=== PATIENT | male | born 1955 | race Caucasian/White ===

== ENCOUNTER 2019-03-06 21:15 | Observation (INO) ==
--- OUTSIDE RECORDS SUMMARY | 2019-03-06 21:17 | External Medical Summary | Continuity of Care Document ---
:1955 Author Name Vidhya Pizarro Address Unavailable Unavailable , Care Team Providers Name Role Phone Onel Robbins M.D. Unavailable [email or web address] [email or web address], UNKNOWN Unavailable Unavailable Problems Active medical history not documented Allergies and Adverse Reactions Allergy history not documented Medications Medications not documented Procedures Procedures not documented Immunizations Immunizations not documented Plan of Treatment Planned Observations Planned Goals not documented Results No Known Results Results not documented
[2019-03-06 21:25] LABS: Basophils # (auto) 0.03 K/uL (0-0.2); Basophils % (auto) 0.5 %; Eosinophils # (auto) 0.25 K/uL (0-0.5); Eosinophils % (auto) 3.9 %; Hematocrit (blood only) 41.7 % (42-52); Hemoglobin 15.1 g/dL (14.0-18.0); Immature Granulocytes # (auto) 0.02 K/uL (0.00-0.02); Immature Granulocytes % (auto) 0.3 %; Lymphocytes # (auto) 2.08 K/uL (1.2-3.4); Lymphocytes % (auto) 32.7 %; Mean Corpuscular Hgb Conc 36.2 g/dL (32-36); Mean Corpuscular Volume 87.6 fL (80-100); Mean Platelet Volume 8.9 fL (7.4-10.4); Monocytes # (auto) 0.65 K/uL (0.11-0.59); Monocytes % (auto) 10.2 %; Neutrophils # (auto) 3.33 K/uL (1.4-6.5); Neutrophils % (auto) 52.4 %; Platelet Count 232 K/uL (130-400); RDW Coefficient of Variation 12.7 % (11.5-14.5); Red Blood Count 4.76 M/uL (4.7-6.1); White Blood Count 6.36 K/uL (4.8-10.8)
--- NOTE | 2019-03-06 21:29 | CT Scan Report ---
CT head/brain wo con CLINICAL HISTORY: 64 years-old Male with Stroke evaluation . Acute strokelike symptoms TECHNIQUE: Multiple axial CT images of the head were obtained without contrast. A dose lowering tech nique was utilized adhering to the principles of ALARA. CT DOSE: 614.27 mGy.cm COMPARISON: Head CT 01/03/2013. FINDINGS: No acute intracranial hemorrhage, midline shift, intracranial mass, hydrocephalus, territorial ischem ia or abnormal extra-axial collection. Cerebral vascular calcifications are noted. Mild bifrontal cer ebral atrophy. The calvarium is intact. Mild mucosal thickening of the ethmoid air cells. Soft tissues and orbits a re unremarkable. IMPRESSION: No acute intracranial abnormality. The above report was generated using voice recognition software. It may contain grammatical, syntax o r spelling errors. Electronically signed by: Dieter Guerrero M.D. 03/06/2019 9:28 PM
[2019-03-06 21:42] LABS: Alanine Aminotransferase 50 U/L (12-78); Albumin Level 4.1 gm/dl (3.4-5.0); Aspartate Aminotransferase 25 U/L (15-37); BUN Creatinine Ratio 13.9 (10-20); Blood Urea Nitrogen 13 mg/dl (7-18); Calcium 8.8 mg/dl (8.5-10.1); Carbon Dioxide 26 mmol/L (21-32); Chloride 106 mmol/L (98-107); Creatinine Clr Calc Pharmacy 75.6 ml/min; Est GFR (African American) 98.8; Est GFR (Non-African American) 85.2; Glucose 122 mg/dl (70-99); Magnesium 1.9 mg/dl (1.8-2.4); Potassium 3.4 mmol/L (3.5-5.1); Sodium 140 mmol/L (136-145)
[2019-03-06 21:46] LABS: Albumin Globulin Ratio 1.3 (0.9-2); Alkaline Phosphatase 91 U/L (45-117); Bilirubin,Total 0.7 mg/dl (0.2-1); Globulin 3.2 gm/dl (2.5-4.0); Total Protein 7.3 gm/dl (6.4-8.2); Troponin I < 0.015 ng/ml (0-0.045)
[2019-03-06 21:53] LABS: Partial Thromboplastin Time 26.8 Seconds (21.0-31.0); Prothrombin Time 10.3 Seconds (9.0-12.0)
[2019-03-06] MEDS ORDERED: ASPIRIN CHEW 324 MG PO STA (22:04)
[2019-03-06] MEDS ORDERED: CLOPIDOGREL BISULFATE 300 MG TAB PO STA (22:04)
--- NOTE | 2019-03-06 23:56 | History & Physical Report ---
Date of Service March 06, 2019 Assessment & Plan (1) Stroke: Patient was seen as a stroke alert and evaluated by tele-stroke. 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 Patient's primary symptoms at the time of my evaluation were inability to close left eye lids, left facial droop, and primary dysfunctionality of left cranial nerve VII. Patient had full range of motion when tracking objects, complained of no diplopia. Recommendation was made for aspirin and Plavix. I have ordered an MRI of brain with and without contrast, MRA of head without contrast, and MRA of neck with and without contrast. Ischemic stroke without TPA protocol ordered. Consults for PT/OT/speech therapy and neurology Present on Admission?: Yes (2) Cranial nerve III palsy: See above Present on Admission?: Yes (3) Cranial nerve VII palsy: See above Present on Admission?: Yes (4) Hypertension: Permissive hypertension. Adjust amlodipine 10 mg p.o. daily in the a.m. as needed. Note for the record the patient had allergic reaction to lisinopril, when he took it for the first time, 2 days before the neuro symptoms developed, that consisted of blistering of his lip and swelling of the left side of the tongue and his hard palate. Present on Admission?: Yes (5) GERD (gastroesophageal reflux disease): Hold omeprazole 20 mg p.o. daily Present on Admission?: Yes (6) Allergic rhinitis: Hold loratadine Present on Admission?: Yes History of Present Illness Chief Complaint: The patient presented to the emergency department as a stroke alert, due to symptoms of slurred speech and facial droop that began around 7:30 PM prior to arrival. Primary Care Provider: Bob Christie The patient is a 64-year-old male brought to the emergency department by EMS, with complaint of slurred speech and facial droop that began at 7:30 PM. The patient reported to me that upon awakening this morning, his right eye had a foreign body sensation with it. He went to work, and when at work later on in the day noticed that when he was eating, the food was dripping out of the left corner of his mouth. Later on when he was at home, and was brushing his teeth, he noted a similar problem with toothpaste, and also noted at that time he was unable to close his left eye and the left side of his face was drooping. He then called his friend, who then called EMS, and the patient was assessed and brought in to the ED. Allergies Allergy/AdvReac Type Severity Reaction Status Date / Time lisinopril Allergy Intermediate Mouth Verified 03/06/19 22:44 blistering Home Medications Home Medications Medication Instructions Recorded Confirmed Type amlodipine 10 mg PO DAILY 03/06/19 03/06/19 History loratadine 10 mg PO DAILY 03/06/19 03/06/19 History multivitamin with minerals [Men's 1 tab PO DAILY 03/06/19 03/06/19 History One Daily] omeprazole 20 mg PO DAILY 03/06/19 03/06/19 History Past Med/Surg History Medical History No significant past medical history Social History Preferred Language: Albanian Communication Ability: Effective 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 Beliefs That Will Affect Care: None Current Living Situation: Spouse Other Information That Helps Us Care for You: No Feels Safe at Home: Yes Safety Concerns: Feels Safe At This Time Smoking Status: Never smoker Hx Alcohol Use: No Hx Substance Use: No Review of Systems Review of Systems: The patient denies chest pain, palpitations, shortness of breath, dyspnea on exertion, cough, lower extremity swelling, sore throat, fevers, chills, sweats, weight change, fatigue, nausea, vomiting, diarrhea , constipation, abdominal pain, pelvic pain, blood in urine or stool, dysuria, urinary frequency or urgency, lightheadedness, dizziness, headache, memory loss, loss of consciousness, rash, abnormal bruising or bleeding, imbalance, focal or generalized weakness, numbness or tingling in arms or legs, generalized arthralgias or myalgias, back or neck pain, or night sweats. The review of systems is otherwise negative other than for that already noted above, and at least 10 systems have been reviewed. Physical Exam Physical Exam: The patient is awake, alert and oriented 3, well developed and well nourished, has a left facial droop, is sitting upright in bed, and in no acute distress. HEENT--PERRL, EOMI, mucous membranes and oropharynx dry. Neck--supple. No JVD. No bruits. Thyroid normal, trachea midline, no adenopathy. Heart--normal S1 and S2. No murmurs, rubs or gallops. Lungs--clear bilaterally, no respiratory distress, no accessory muscle use. Abdomen--normal bowel sounds and soft. Nontender. Nondistended. Extremities--no cyanosis or clubbing. No edema. There are good distal pulses b/l. Dermatologic--normal skin turgor, normal color, no abnormal lymph nodes, no rash. Neurologic--left facial droop. Unable to blink left eye. Normal tracking and full range of motion noted. Rheumatologic--normal range of motion. Psychiatric--normal affect. Results & Data Vital Signs (Past 12 Hours) Vital Signs Temp Pulse Pulse Resp BP BP Pulse Ox 03/06/19 23:10 83 20 133/77 96 03/06/19 22:30 103 H 22 162/90 H 97 03/06/19 22:00 95 H 28 H 141/89 H 95 03/06/19 21:32 99 H 31 H 149/88 H 94 03/06/19 21:29 98.8 F 103 H 14 149/88 H 96 03/06/19 21:24 100 H 23 153/90 H Laboratory Results Laboratory Results WBC 6.36 K/uL (4.8-10.8) 03/06/19 21:16 RBC 4.76 M/uL (4.7-6.1) 03/06/19 21:16 Hgb 15.1 g/dL (14.0-18.0) 03/06/19 21:16 Hct 41.7 % (42-52) L 03/06/19 21:16 MCV 87.6 fL (80-100) 03/06/19 21:16 MCH 31.7 pg (25-34) 03/06/19 21:16 MCHC 36.2 g/dL (32-36) H 03/06/19 21:16 RDW Std Deviation 41.0 fL (36.4-46.3) 03/06/19 21:16 RDW Coeff of Cony 12.7 % (11.5-14.5) 03/06/19 21:16 Plt Count 232 K/uL (130-400) 03/06/19 21:16 MPV 8.9 fL (7.4-10.4) 03/06/19 21:16 Immature Gran % (Auto) 0.3 % 03/06/19 21:16 Neut % (Auto) 52.4 % 03/06/19 21:16 Lymph % (Auto) 32.7 % 03/06/19 21:16 [place] % (Auto) 10.2 % 03/06/19 21:16 Eos % (Auto) 3.9 % 03/06/19 21:16 Baso % (Auto) 0.5 % 03/06/19 21:16 Immature Gran # (Auto) 0.02 K/uL (0.00-0.02) 03/06/19 21:16 Neut # (Auto) 3.33 K/uL (1.4-6.5) 03/06/19 21:16 Lymph # (Auto) 2.08 K/uL (1.2-3.4) 03/06/19 21:16 [place] # (Auto) 0.65 K/uL (0.11-0.59) H 03/06/19 21:16 Eos # (Auto) 0.25 K/uL (0-0.5) 03/06/19 21:16 Baso # (Auto) 0.03 K/uL (0-0.2) 03/06/19 21:16 PT 10.3 Seconds (9.0-12.0) 03/06/19 21:30 INR 1.0 (0.9-1.1) 03/06/19 21:30 APTT 26.8 Seconds (21.0-31.0) 03/06/19 21:30 PTT Ratio 1.0 03/06/19 21:30 Sodium 140 mmol/L (136-145) 03/06/19 21:16 Potassium 3.4 mmol/L (3.5-5.1) L 03/06/19 21:16 Chloride 106 mmol/L (98-107) 03/06/19 21:16 Carbon Dioxide 26 mmol/L (21-32) 03/06/19 21:16 Anion Gap 8.0 (3-11) 03/06/19 21:16 BUN 13 mg/dl (7-18) 03/06/19 21:16 Creatinine 0.93 mg/dl (0.6-1.4) 03/06/19 21:16 Est Cr Clr Drug Dosing 75.6 ml/min 03/06/19 21:16 Est GFR ( Amer) 98.8 03/06/19 21:16 Est GFR (Non-Af Amer) 85.2 03/06/19 21:16 BUN/Creatinine Ratio 13.9 (10-20) 03/06/19 21:16 Glucose 122 mg/dl (70-99) H 03/06/19 21:16 POC Glucose 111 (70-99) H 03/06/19 21:25 Calcium 8.8 mg/dl (8.5-10.1) 03/06/19 21:16 Magnesium 1.9 mg/dl (1.8-2.4) 03/06/19 21:16 Total Bilirubin 0.7 mg/dl (0.2-1) 03/06/19 21:16 AST 25 U/L (15-37) 03/06/19 21:16 ALT 50 U/L (12-78) 03/06/19 21:16 Alkaline Phosphatase 91 U/L (45-117) 03/06/19 21:16 Troponin I < 0.015 ng/ml (0-0.045) 03/06/19 21:16 Total Protein 7.3 gm/dl (6.4-8.2) 03/06/19 21:16 Albumin 4.1 gm/dl (3.4-5.0) 03/06/19 21:16 Globulin 3.2 gm/dl (2.5-4.0) 03/06/19 21:16 Albumin/Globulin Ratio 1.3 (0.9-2) 03/06/19 21:16 Blood Type O Positive 03/06/19 21:30 Antibody Screen NEGATIVE 03/06/19 21:30 Diagnostic Findings [facility], [place] [phone] CT Scan Report Patient: TAMMI CELESTINAdmit Date: 03/06/19 MR#: [id number]: [address] [place] [address] Acct ID:[id number]: Date: 1955[facility] Zip: [place] [address] Age: 64Location: ED Sex: M Room/Bed: Att Phy: Diagnosis: STROKE SX Tamie Phy: PCP,NO Service Date: 03/06/19 [facility] Phy: Interpreting Phy: Everardo Guerrero Admit Phy: Ordering Phy: Anuj Malcolm M.D. cc: ~ CT head/brain wo con CLINICAL HISTORY: 64 years-old Male with Stroke evaluation . Acute strokelike symptoms TECHNIQUE: Multiple axial CT images of the head were obtained without contrast. A dose lowering technique was utilized adhering to the principles of ALARA. CT DOSE: 614.27 mGy.cm COMPARISON: Head CT 01/03/2013. FINDINGS: No acute intracranial hemorrhage, midline shift, intracranial mass, hydrocephalus, territorial ischemia or abnormal extra-axial collection. Cerebral vascular calcifications are noted. Mild bifrontal cerebral atrophy. The calvarium is intact. Mild mucosal thickening of the ethmoid air cells. Soft tissues and orbits are unremarkable. IMPRESSION: No acute intracranial abnormality. The above report was generated using voice recognition software. It may contain grammatical, syntax or spelling errors. Electronically signed by: Dieter Guerrero M.D. 03/06/2019 9:28 PM Dictated: 03/06/192125 Transcribed: 03/06/192125 Code Status & VTE Plan Code Status Full code VTE Prophylaxis Plan VTE Prophylaxis will be ordered: Yes PG Care Time/CCT Total # of Minutes Spent Total Time Spent with Patient: Total time spent is greater than 50% in coordination of care (as documented) at patient's floor/unit and/or counseling patient: (1) Stroke CVA mechanism: unspecified Qualified Code(s): I63.9 - Cerebral infarction, unspecified (2) Cranial nerve III palsy Laterality: right Qualified Code(s): H49.01 - Third [oculomotor] nerve palsy, right eye
[2019-03-07] MEDS ORDERED: ONDANSETRON INJ 2 MG/ML 2 ML VIAL IV PRN (01:21)
[2019-03-07] MEDS ORDERED: PHARMACIST DISCHARGE MED REC CONSULT PRN (01:21)
[2019-03-07] MEDS ORDERED: ENOXAPARIN INJ 40 MG/0.4 ML SYR SQ SCH ×2 (01:45→22:00)
--- NOTE | 2019-03-07 01:46 | Emergency Department Note ---
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 Per EMS, the patient had a headache which has since resolved. They note that when they arrived the patient's speech was slurred. Patient reports mild headache. Patient is not on any blood thinners. Home Medications Home Medications Medication Instructions Recorded Confirmed Type amlodipine 10 mg PO DAILY 03/06/19 03/06/19 History loratadine 10 mg PO DAILY 03/06/19 03/06/19 History multivitamin with minerals [Men's 1 tab PO DAILY 03/06/19 03/06/19 History One Daily] omeprazole 20 mg PO DAILY 03/06/19 03/06/19 History Allergies Allergy/AdvReac Type Severity Reaction Status Date / Time lisinopril Allergy Intermediate Mouth Verified 03/06/19 22:44 blistering Past Med/Surg History Medical History No significant past medical history Social History Preferred Language: Slovenian Smoking Status: Former smoker Review of Systems See HPI for pertinent positives & negatives. and A total of 10 systems reviewed and were otherwise negative Physical Exam Vital Signs Vital Signs - 24 hr 03/06/19 21:24 03/06/19 21:29 03/06/19 21:32 Temperature 37.1 C Temperature Source Oral Sepsis Recent Fever Within 48 Hours No Sepsis Action Taken by Nursing No Action Required Pulse Rate 100 H 103 H 99 H Pulse Rate [Finger] Pulse Rate from SpO2 Sensor 98 H Respiratory Rate 23 14 31 H Respiratory Effort / Characteristics Non-Labored Respiratory Depth Normal Blood Pressure 153/90 H 149/88 H 149/88 H Blood Pressure [Right Arm] Blood Pressure Mean 111 108 108 Blood Pressure Mean [Right Arm] Blood Pressure Position Sitting Pulse Oximetry 96 94 Oxygen Delivery Method Room Air 03/06/19 22:00 03/06/19 22:30 03/06/19 23:10 Temperature Temperature Source Sepsis Recent Fever Within 48 Hours Sepsis Action Taken by Nursing Pulse Rate 95 H 103 H Pulse Rate [Finger] 83 Pulse Rate from SpO2 Sensor 95 H 102 H Respiratory Rate 28 H 22 20 Respiratory Effort / Characteristics Non-Labored Spontaneous Respiratory Depth Normal Blood Pressure 141/89 H 162/90 H Blood Pressure [Right Arm] 133/77 Blood Pressure Mean 106 114 Blood Pressure Mean [Right Arm] 95 Blood Pressure Position Pulse Oximetry 95 97 96 Oxygen Delivery Method Room Air Physical Exam GENERAL: He is oriented to person, place, and time. He appears well-developed and well-nourished. He does not appear distressed. ____ HENT: Exam performed. - Head: Normocephalic and atraumatic. - Right Ear: External ear normal. No mastoid tenderness. - Left Ear: External ear normal. No mastoid tenderness. - Mouth/Throat: The oropharynx is clear and moist. No trismus in the jaw. No dental abscesses or uvula swelling. No oropharyngeal exudate or tonsillar abscesses. ____ EYES: Conjunctivae and EOM are normal. Pupils are equal, round, and reactive to light. Right eye exhibits no discharge. Left eye exhibits no discharge. No scleral icterus. ____ NECK: Normal range of motion. Neck supple. No JVD present. No spinous process tenderness present. No carotid bruit present. No rigidity. No tracheal deviation and normal range of motion present. No Brudzinski's sign and no Kernig's sign noted. ____ CV: Normal rate, regular rhythm, normal heart sounds and intact distal pulses. There is no peripheral edema. Palpable radial pulses bue. ____ PULM/CHEST: Effort normal and breath sounds normal. No respiratory distress. No stridor. He has no wheezes. He has no rales. - Chest Wall: He exhibits no tenderness. ____ ABD: The abdomen is soft. Bowel sounds are normal. He has no distension. No mass is present. There is no tenderness. There is no rebound, no guarding, no Velazquez's sign and no tenderness at McBurney's point. Rovsig negative MUSC/SKEL: Normal range of motion. There is no peripheral edema, tenderness or deformity. LYMPH: No cervical adenopathy. ____ NEURO: NIHSS of 3. Dysarthria; 1. Facial paralysis; 2. SKIN: Skin is warm and dry. He is not diaphoretic. ____ PSYCH: He has a normal mood and affect. His behavior is normal. Judgment and thought content normal. ____ Course 2116: The patient was evaluated in room B1, and a complete history and physical examination were performed.I called code stroke. 2124: I viewed the CT scan and did not see any intracranial hemorrhage. I will be contacting [facility] tele-stoke. 2128: I discussed the patient's case with Dr. Boucher- [facility]roke, she will be evaluating the patient. [facility] does not recommend a TPA at this time. She recommends Aspirin 324 and Plavix 100, and a MRA and an MRI in the morning. 2208: I discussed the patient's case with Dr. Robbins- [facility] Hospitalist, he will accept the patient for further evaluation. Administered Medications Discontinued Medications Aspirin (Aspirin) 324 mg PO NOW STA Stop: 03/06/19 22:05 Last Admin: 03/06/19 22:43 Dose: 324 mg Documented by: [id number] Clopidogrel Bisulfate (Plavix) 300 mg PO NOW STA Stop: 03/06/19 22:05 Last Admin: 03/06/19 22:43 Dose: 300 mg Documented by: [id number] Medical Decision Making Medical Records Attestation: I reviewed the patient's medical records. Home Medications Current Medication List: was personally reviewed by me Laboratory Data Attestation: I reviewed the patient's lab results. Result diagrams: 03/06/19 21:16 03/06/19 21:16 Lab Results 03/06/19 03/06/19 03/06/19 Range/Units 21:16 21:16 21:25 WBC 6.36 (4.8-10.8) K/uL RBC 4.76 (4.7-6.1) M/uL Hgb 15.1 (14.0-18.0) g/dL Hct 41.7 L (42-52) % MCV 87.6 (80-100) fL MCH 31.7 (25-34) pg MCHC 36.2 H (32-36) g/dL RDW Std Deviation 41.0 (36.4-46.3) fL RDW Coeff of Cony 12.7 (11.5-14.5) % Plt Count 232 (130-400) K/uL MPV 8.9 (7.4-10.4) fL Immature Gran % (Auto) 0.3 % Neut % (Auto) 52.4 % Lymph % (Auto) 32.7 % [place] % (Auto) 10.2 % Eos % (Auto) 3.9 % Baso % (Auto) 0.5 % Immature Gran # (Auto) 0.02 (0.00-0.02) K/uL Neut # (Auto) 3.33 (1.4-6.5) K/uL Lymph # (Auto) 2.08 (1.2-3.4) K/uL [place] # (Auto) 0.65 H (0.11-0.59) K/uL Eos # (Auto) 0.25 (0-0.5) K/uL Baso # (Auto) 0.03 (0-0.2) K/uL PT (9.0-12.0) Seconds INR (0.9-1.1) APTT (21.0-31.0) Seconds PTT Ratio Sodium 140 (136-145) mmol/L Potassium 3.4 L (3.5-5.1) mmol/L Chloride 106 (98-107) mmol/L Carbon Dioxide 26 (21-32) mmol/L Anion Gap 8.0 (3-11) BUN 13 (7-18) mg/dl Creatinine 0.93 (0.6-1.4) mg/dl Est Cr Clr Drug Dosing 75.6 ml/min Est GFR ( Amer) 98.8 Est GFR (Non-Af Amer) 85.2 BUN/Creatinine Ratio 13.9 (10-20) Glucose 122 H (70-99) mg/dl POC Glucose 111 H (70-99) Calcium 8.8 (8.5-10.1) mg/dl Magnesium 1.9 (1.8-2.4) mg/dl Total Bilirubin 0.7 (0.2-1) mg/dl AST 25 (15-37) U/L ALT 50 (12-78) U/L Alkaline Phosphatase 91 (45-117) U/L Troponin I < 0.015 (0-0.045) ng/ml Total Protein 7.3 (6.4-8.2) gm/dl Albumin 4.1 (3.4-5.0) gm/dl Globulin 3.2 (2.5-4.0) gm/dl Albumin/Globulin Ratio 1.3 (0.9-2) Blood Type Antibody Screen 03/06/19 03/06/19 Range/Units 21:30 21:30 WBC (4.8-10.8) K/uL RBC (4.7-6.1) M/uL Hgb (14.0-18.0) g/dL Hct (42-52) % MCV (80-100) fL MCH (25-34) pg MCHC (32-36) g/dL RDW Std Deviation (36.4-46.3) fL RDW Coeff of Cony (11.5-14.5) % Plt Count (130-400) K/uL MPV (7.4-10.4) fL Immature Gran % (Auto) % Neut % (Auto) % Lymph % (Auto) % [place] % (Auto) % Eos % (Auto) % Baso % (Auto) % Immature Gran # (Auto) (0.00-0.02) K/uL Neut # (Auto) (1.4-6.5) K/uL Lymph # (Auto) (1.2-3.4) K/uL [place] # (Auto) (0.11-0.59) K/uL Eos # (Auto) (0-0.5) K/uL Baso # (Auto) (0-0.2) K/uL PT 10.3 (9.0-12.0) Seconds INR 1.0 (0.9-1.1) APTT 26.8 (21.0-31.0) Seconds PTT Ratio 1.0 Sodium (136-145) mmol/L Potassium (3.5-5.1) mmol/L Chloride (98-107) mmol/L Carbon Dioxide (21-32) mmol/L Anion Gap (3-11) BUN (7-18) mg/dl Creatinine (0.6-1.4) mg/dl Est Cr Clr Drug Dosing ml/min Est GFR ( Amer) Est GFR (Non-Af Amer) BUN/Creatinine Ratio (10-20) Glucose (70-99) mg/dl POC Glucose (70-99) Calcium (8.5-10.1) mg/dl Magnesium (1.8-2.4) mg/dl Total Bilirubin (0.2-1) mg/dl AST (15-37) U/L ALT (12-78) U/L Alkaline Phosphatase (45-117) U/L Troponin I (0-0.045) ng/ml Total Protein (6.4-8.2) gm/dl Albumin (3.4-5.0) gm/dl Globulin (2.5-4.0) gm/dl Albumin/Globulin Ratio (0.9-2) Blood Type O Positive Antibody Screen NEGATIVE Imaging Data Radiologist's Impression: Radiology results as stated below per my review and the radiologist's interpretation: CT head/brain wo con CLINICAL HISTORY: 64 years-old Male with Stroke evaluation . Acute strokelike symptoms TECHNIQUE: Multiple axial CT images of the head were obtained without contrast. A dose lowering technique was utilized adhering to the principles of ALARA. CT DOSE: 614.27 mGy.cm COMPARISON: Head CT 01/03/2013. FINDINGS: No acute intracranial hemorrhage, midline shift, intracranial mass, hydroce phalus, territorial ischemia or abnormal extra-axial collection. Cerebral vascular calcifications are noted. Mild bifrontal cerebral atrophy. The calvarium is intact. Mild mucosal thickening of the ethmoid air cells. Soft tissues and orbits are unremarkable. IMPRESSION: No acute intracranial abnormality. The above report was generated using voice recognition software. It may contain grammatical, syntax or spelling errors. Electronically signed by: Dieter Guerrero M.D. 03/06/2019 9:28 PM ECG Data Attestation: I personally reviewed and interpreted this ECG as follows: Indication: other (slurred speech) Rate (beats per minute): 95 Rhythm: sinus rhythm Findings: + other (QRS, [place], QTC intervals are within normal limits); no ST depression and no ST elevation Blood Pressure Blood Pressure Findings: Elevated blood pressure Blood Pressure Disposition: further management by hospitalist [facility] Narrative 2116: The patient was evaluated in room B1, and a complete history and physical examination were performed.I called code stroke. 2124: I viewed the CT scan and did not see any intracranial hemorrhage. I will be contacting [facility] tele-stoke. 2128: I discussed the patient's case with Dr. Buitrago [facility] Tel[facility]roke, she will be evaluating the patient. 2199: Dr. Buitrago [facility] Telestroke, she does not recommend a TPA at this time. She recommends Aspirin 324 and Plavix 100, and a MRA and an MRI in the morning. 2208: I discussed the patient's case with Dr. Robbins- [facility] Hospitalist, he will accept the patient for further evaluation. Impression & Plan Stroke, Cranial nerve III palsy, Cranial nerve VII palsy Critical Care Time Critical Care Time: Yes Total Critical Care Time: 48 I have personally spent 48 minutes of critical care time in the direct management of this patient. This includes bedside care, interpretation of diag nostic studies, and testing, discussion with consultants, patient, and family members, and other required patient management activities. This 48 minutes is in excess of all separately billable procedures. Discharge Plan Visit Data *Final* Discharge Date/Time: 03/07/19 00:48 Chief Complaint: Stroke Alert Stated Complaint: STROKE SX ED Provider: Anuj Malcolm Discharge Problem: Stroke, Cranial nerve III palsy, Cranial nerve VII palsy Patient Disposition: Admitted As Inpatient Discharge Instructions Interventions: ED Discharge Assessment Last Done: 03/07/19 00:48 Discharge Problem: Stroke Qualifiers: CVA mechanism: unspecified Qualified Code(s): I63.9 - Cerebral infarction, unspecified Cranial nerve III palsy Qualifiers: Laterality: right Qualified Code(s): H49.01 - Third [oculomotor] nerve palsy, right eye The scribe's documentation has been prepared under my direction and personally reviewed by me in its entirety. I confirm that the note above accurately reflects all work, treatment, procedures, and medical decision making performed by me.
[2019-03-07] MEDS ORDERED: GADOBUTROL 65ML VIAL IV PRN (01:57)
[2019-03-07 06:11] LABS: Basophils # (auto) 0.04 K/uL (0-0.2); Basophils % (auto) 0.7 %; Eosinophils # (auto) 0.35 K/uL (0-0.5); Eosinophils % (auto) 5.8 %; Hematocrit (blood only) 41.2 % (42-52); Hemoglobin 15.1 g/dL (14.0-18.0); Lymphocytes # (auto) 2.26 K/uL (1.2-3.4); Lymphocytes % (auto) 37.4 %; Mean Corpuscular Hgb Conc 36.7 g/dL (32-36); Mean Platelet Volume 8.9 fL (7.4-10.4); Monocytes # (auto) 0.78 K/uL (0.11-0.59); Monocytes % (auto) 12.9 %; Neutrophils # (auto) 2.62 K/uL (1.4-6.5); Neutrophils % (auto) 43.2 %; Platelet Count 228 K/uL (130-400); RDW Coefficient of Variation 12.9 % (11.5-14.5); RDW Standard Deviation 41.6 fL (36.4-46.3); Red Blood Count 4.68 M/uL (4.7-6.1); White Blood Count 6.05 K/uL (4.8-10.8)
[2019-03-07 06:55] LABS: BUN Creatinine Ratio 15.4 (10-20); Calcium 8.5 mg/dl (8.5-10.1); Creatinine Clr Calc Pharmacy 100.1 ml/min; Est GFR (Non-African American) 94.1; Potassium 3.6 mmol/L (3.5-5.1)
--- NOTE | 2019-03-07 07:14 | Magnetic Resonance Report ---
MR ANGIOGRAPHY OF THE [place] NO CONTRAST CLINICAL HISTORY: stroke alert, L 7th nerve palsy COMPARISON STUDY: CT scan performed January 2013 A 3-D [id number] MR angiographic sequence of the [place] was performed. Both the source and projection images were reviewed. There is no evidence of major intracranial branch occlusion. There is no evidence of intracranial rafael nosis. There are no lesions suspicious for aneurysm. IMPRESSION: Unremarkable MR angiography of the [place]. Electronically signed by: Farrukh Millan M.D. 03/07/2019 7:13 AM
--- NOTE | 2019-03-07 07:17 | Magnetic Resonance Report ---
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 Maximum intensity projection images were also obta ined. All measurements were calculated based on NASCET criteria. A dose lowering technique was utili zed adhering to the principles of ALARA. COMPARISON STUDY: None. FINDINGS: The aortic arch and proximal great vessels are widely patent. There is no significant sten osis, occlusion, or dissection identified within the bilateral common carotid, internal carotid, or v ertebral arteries. IMPRESSION: No significant stenosis, occlusion, or dissection identified within the carotid or vertebral arteries . Electronically signed by: Jaiden Queen M.D. 03/07/2019 7:15 AM
[2019-03-07 07:18] LABS: Estimated Average Glucose 105 mg/dl; Hemoglobin A1C 5.3 % (4.5-5.6)
--- NOTE | 2019-03-07 07:18 | Magnetic Resonance Report ---
MRI OF THE BRAIN COMBO CLINICAL HISTORY: Strokelike symptoms. 7th cranial nerve palsy. COMPARISON STUDY: CT of the brain dated 03/06/2019. TECHNIQUE: MRI of the brain was performed utilizing various T1 and T2-weighted sequences in the axial , sagittal, and coronal planes. Contrast-enhanced sequences were acquired following the administratio n of 8 cc of Gadavist. FINDINGS: Brain parenchyma: There is minimal periventricular microangiopathic disease. There is no hemorrhage o r mass effect. There is no restricted diffusion to suggest acute ischemia. No enhancing mass lesion i s identified on the postcontrast images. Baum-white matter differentiation is preserved. No extra-axi al fluid collection is seen. A tiny chronic lacunar infarct is noted in the right cerebellar hemisphe re. The cerebellar tonsils are normal in configuration. Ventricles, sulci, and cisterns: Normal in configuration. Pituitary and sella: Unremarkable. Intracranial vasculature: Normal flow voids are maintained at the skull base. Orbits: The bony orbits are grossly intact. Orbital contents are normal in appearance. Sinuses and mastoids: There is a 1.9 cm retention cyst in the right maxillary antrum. Trace mucosal t hickening is seen in the ethmoid sinuses The paranasal sinuses are otherwise clear. The mastoid air c ells are well pneumatized. Calvarium: Unremarkable. Cervical cord: Partially visualized cervical spinal cord is normal in morphology and signal intensity . IMPRESSION: No acute intracranial abnormality. Electronically signed by: Anderson Larose M.D. 03/07/2019 7:17 AM
--- NOTE | 2019-03-07 20:38 | Hospitalist Progress Note ---
Date of Service March 07, 2019 Assessment & Plan (1) Hypertension: Permissive hypertension. Adjust amlodipine 10 mg p.o. daily in the a.m. as needed. Allergic reaction to lisinopril with ulcers in the mouth, could be actually helps (2) GERD (gastroesophageal reflux disease): Hold omeprazole 20 mg p.o. 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 daily for 7 days for treatment of Herman's palsy Ordered herpes virus 1 and 2 PCR and blood Ordered herpes virus culture from the ulcer in the mouth Eye care, lubricant ointment, artificial tears, close eye at night Consider ordering CT scan with contrast for facial bones tomorrow or MRI in her ear Also could be marie washington syndrome As patient reported ear pain, will put him on airborne isolation Subjective Still unable to move the left side of his face, unable to blink left eye Review of Systems Review of Systems: Aside from mentioned above Review of system Constitutional: No fever / no chills / no sweats / no weakness / no fatigue Eyes: no blurring of vision / no eye pain / no discharge / no redness ENT: no hearing loss / no epistaxis /no swallowing problems Respiratory: no cough / no wheezing / no SOB / no hemoptysis Cardiovascular: no Chest pain / no lower extremity edema / no palpitation Abdomen: no pain / no nausea / no vomiting / no constipation Musculoskeletal: no joint pain / no muscle pain / no joint swelling Genitourinary: no dysuria / no incontinence / no urinary retention Neurologic: no focal weakness except in the face/ no numbness/tingling / no ataxia Psychiatric: no depression symptoms / no anxiety / no insomnia Endocrine: no excessive thirst / no excessive urination Hematologic: no abnormal bleeding / no bruising / no LN swelling Skin: No rash / no pallor Physical Exam Physical Exam: Physical examination General patient appears to be comfortable, not in acute distress HEENT: Atraumatic , normocephalic /no jaundice /no pallor /anicteric /no dry mucous membrane /normal external ear inspection Neck: Supple /no swelling /central trach Heart: S1/S2 normal/regular rate and rhythm/no gallop /no rub /no murmur Lungs: Clear to auscultation bilaterally/normal chest with expansion/no rhonchi/no rales/no wheezing/no use of accessory muscles of respiration Abdomen: Soft/nontender/no guarding/no rebound/no organomegaly/no pulsatile mass Musculoskeletal: No swelling/no edema/no tenderness/normal range of motion Neuro exam: Left facial droop, unable to close left eye awake alert oriented 3/cranial nerves II through XII appear to be intact/sensation intact/moves all extremities/no abnormal movements Psychiatric evaluation: No depressed mood/normal affect Skin: No rash on exposed skin area/no erythema Extremity: Normal pulse/no pitting edema/no clubbing or cyanosis Endocrine/lymphatic: No obvious lymphadenopathy /no lymphedema Results & Data Vital Signs (Past 12 Hours) Vital Signs Temp Pulse Pulse Resp BP Pulse Ox 03/07/19 19:23 36.9 C 79 18 143/80 H 94 03/07/19 16:00 75 03/07/19 15:53 36.5 C 70 18 130/77 96 03/07/19 10:30 36.5 C 81 19 137/83 96 PG Care Time/CCT Total # of Minutes Spent Total Time Spent with Patient: Total time spent is greater than 50% in coordination of care (as documented) at patient's floor/unit and/or counseling patient:
[2019-03-07] MEDS: VALACYCLOVIR HCL 500 MG TABLET PO SCH (22:19)
[2019-03-07] MEDS: ARTIFICIAL TEARS OP OINT 3.5 GM TUBE OP SCH (22:20)
[2019-03-08] MEDS: ARTIFICIAL TEARS OP OINT 3.5 GM TUBE OP SCH ×3 (03:11→14:23)
[2019-03-08] MEDS: VALACYCLOVIR HCL 500 MG TABLET PO SCH ×2 (08:27→14:23)
[2019-03-08 08:28] LABS: Basophils # (auto) 0.05 K/uL (0-0.2); Basophils % (auto) 0.7 %; Eosinophils # (auto) 0.27 K/uL (0-0.5); Hematocrit (blood only) 43.9 % (42-52); Hemoglobin 15.9 g/dL (14.0-18.0); Immature Granulocytes # (auto) 0.01 K/uL (0.00-0.02); Immature Granulocytes % (auto) 0.1 %; Lymphocytes # (auto) 1.77 K/uL (1.2-3.4); Lymphocytes % (auto) 26.1 %; Mean Corpuscular Hgb Conc 36.2 g/dL (32-36); Mean Corpuscular Volume 87.6 fL (80-100); Monocytes # (auto) 0.73 K/uL (0.11-0.59); Monocytes % (auto) 10.8 %; Neutrophils # (auto) 3.96 K/uL (1.4-6.5); Neutrophils % (auto) 58.3 %; Platelet Count 240 K/uL (130-400); RDW Coefficient of Variation 12.8 % (11.5-14.5); RDW Standard Deviation 40.9 fL (36.4-46.3); Red Blood Count 5.01 M/uL (4.7-6.1); White Blood Count 6.79 K/uL (4.8-10.8)
[2019-03-08] MEDS ORDERED: predniSONE 20 MG TAB PO SCH (09:00)
[2019-03-08 09:04] LABS: BUN Creatinine Ratio 16.7 (10-20); Calcium 9.2 mg/dl (8.5-10.1); Creatinine Clr Calc Pharmacy 88.8 ml/min; Est GFR (African American) 103.7; Est GFR (Non-African American) 89.5; Potassium 3.6 mmol/L (3.5-5.1)
--- NOTE | 2019-03-08 11:01 | Neurology Consultation ---
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 No evidence for acute stroke or other pathology that would otherwise explain his left facial weakness. I do not think he has Galena Pino syndrome as clinically questioned as he does not have associated deep ear pain or an associated shingles eruption. The oral ulcer on the roof of his mouth is quite nonspecific appearing but could be consistent with underlying latent viral reactivation. Would continue with standard treatment for Herman's palsy which includes an oral corticosteroid taper and a short course of Valtrex. I have no further immediate recommendations although he may benefit from an eye patch for the time being. I did explain to the patient and his family that most individuals with Herman's palsy experience complete or near complete resolution within a few weeks although some cases may take several months. I also explained that some individuals may have incomplete healing and experience persistent facial weakness. Please contact me if I may be of further assistance. History of Present Illness Reason for Consultation: Herman's palsy versus Galena Ipno syndrome Requesting Physician: Audi Abreu Attending Physician: Mercy William MD History of Present Illness The patient is a 64-year-old male with a chief complaint of a left facial droop and associated slurred speech that began in the evening 2 days ago. He had a mild headache at that time as well. He did not experience any associated vision disturbance, vertigo, or weakness or sensory loss of the limbs. He was evaluated in the emergency department for strokelike symptoms and had a tele- stroke consultation with [facility]. TPA was not recommended although the patient was started on antiplatelet therapy. He continues to report weakness of the left upper and lower facial musculature with an inability to close the left eye. He denies any headache at this time and denies any pain in or around the left ear. He does not have an obvious shingles eruption on the face or head but does have a nonspecific appearing oral ulcer on the roof of the mouth. Extensive neuroimaging including CT of the head, MRI of the brain, and MRA of the head and neck is unremarkable. He has been started on prednisone and Valtrex. The patient does not have any other complaints or concerns at this time. Family history noncontributory Allergies Allergy/AdvReac Type Severity Reaction Status Date / Time lisinopril Allergy Intermediate Mouth Verified 03/06/19 22:44 blistering Home Medications Home Medications Medication Instructions Recorded Confirmed Type amlodipine 10 mg PO DAILY 03/06/19 03/06/19 History loratadine 10 mg PO DAILY 03/06/19 03/06/19 History multivitamin with minerals [Men's 1 tab PO DAILY 03/06/19 03/06/19 History One Daily] omeprazole 20 mg PO DAILY 03/06/19 03/06/19 History Patient History Medical History No significant past medical history Social History Preferred Language: Ch[place] Communication Ability: Effective 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 Beliefs That Will Affect Care: None Current Living Situation: Spouse Other Information That Helps Us Care for You: No Feels Safe at Home: Yes Safety Concerns: Feels Safe At This Time Smoking Status: Never smoker Hx Alcohol Use: No Hx Substance Use: No Review of Systems Constitutional: no fever and no chills Eyes: no blind spots and no diplopia Ear, Nose, Mouth, Throat: no ear pain and no hearing loss Respiratory: no cough and no dyspnea Cardiovascular: no chest pain and no palpitations Gastrointestinal: no nausea and no vomiting Genitourinary: no dysuria Musculoskeletal: no neck pain and no myalgia Integumentary: as per Subjective / HPI Neurologic: as per Subjective / HPI Psychiatric: no depression and no anxiety Hematologic / Lymphatic: no easy bleeding and no easy bruising Physical Exam Physical Exam: The patient is a well-developed, well-nourished elderly male. He is alert and fully oriented. Recent and remote memory intact. Attention and concentration normal. Patient exhibits a normal spontaneous speech pattern as well as an age-appropriate fund of knowledge. Visual fitzpatrick full to confrontation. Visual acuity normal. Pupils equal round reactive to light and accommodation. Eye movements normal. There is no nystagmus. Facial sensation intact. There is severe weakness of the left upper and lower facial musculature with inability to close the left eye. Hearing intact bilaterally. Palate elevates to midline. Shoulder shrug intact. Tongue protrudes to midline. Sensation intact to all modalities in all 4 limbs. Deep tendon reflexes intact and symmetrical for the arms and legs. Plantar responses downgoing bilaterally. There is no dysdiadochokinesia or dysmetria [id number] or fctc-[id number] bilaterally. Ophthalmoscopic examination reveals normal-appearing optic disks and posterior segments. No papilledema or hemorrhages. Carotid pulses normal bilaterally, no bruits to auscultation. Gait and station normal. Patient exhibits normal muscle strength and tone for all 4 limbs. No atrophy. No abnormal movements observed. Results & Data Vital Signs (Past 12 Hours) Vital Signs Temp Pulse Resp BP Pulse Ox 03/08/19 07:39 36.9 C 88 18 129/81 97 03/08/19 04:20 36.9 C 78 18 128/78 96 03/07/19 23:49 36.5 C 83 17 124/76 94 Laboratory Results WBC 6.79, hemoglobin 15.9, hematocrit 43.9, platelet count 240, sodium 139, potassium 3.6, BUN 15, creatinine 0.88, glucose 124, hemoglobin A1c 5.3, calcium 9.2, triglycerides 343, cholesterol 182, LDL 78, VLDL 69, HDL [address] of the head completed 03/06/2019 negative for acute abnormality. I reviewed the images and radiologist interpretation of this test. MRI of the brain completed 03/07/2019- for acute abnormality. There is a tiny incidental chronic lacunar infarct in the right cerebellar hemisphere and an incidental 1.9 cm retention cyst in the right maxillary antrum. I reviewed the images as well as the radiologist interpretation of this test. MR angiography of the head and neck unremarkable. No evidence for stenosis, occlusion, or dissection. An echocardiogram completed 03/07/2019 reveals normal left ventricular size and function, ejection fraction 60 to 65% without regional wall motion abnormalities. No inter-atrial shunt. Electrocardiogram reveals normal sinus rhythm, 95 bpm. PG Care Time/CCT Total # of Minutes Spent Total Time Spent with Patient: Total time spent is greater than 50% in coordination of care (as documented) at patient's floor/unit and/or counseling patient:
--- NOTE | 2019-03-08 15:29 | Discharge Summary ---
Date of Service March 08, 2019 Admission HPI Per Admitting Provider The patient is a 64-year-old male brought to the emergency department by EMS, with complaint of slurred speech and facial droop that began at 7:30 PM. The patient reported to me that upon awakening this morning, his right eye had a foreign body sensation with it. He went to work, and when at work later on in the day noticed that when he was eating, the food was dripping out of the left corner of his mouth. Later on when he was at home, and was brushing his teeth, he noted a similar problem with toothpaste, and also noted at that time he was unable to close his left eye and the left side of his face was drooping. He then called his friend, who then called EMS, and the patient was assessed and brought in to the ED. Principal Diagnosis Left-sided Herman's palsy Oral ulcer, possible herpes oralis Essential hypertension GERD Allergic rhinitis Discharge Exam Physical examination General patient appears to be comfortable, not in acute distress HEENT: Atraumatic , normocephalic /no jaundice /no pallor /anicteric /no dry mucous membrane /normal external ear inspection, small vesicular ulcer in the hard palate Neck: Supple /no swelling /central trach Heart: S1/S2 normal/regular rate and rhythm/no gallop /no rub /no murmur Lungs: Clear to auscultation bilaterally/normal chest with expansion/no rhonchi/no rales/no wheezing/no use of accessory muscles of respiration Abdomen: Soft/nontender/no guarding/no rebound/no organomegaly/no pulsatile mass Musculoskeletal: No swelling/no edema/no tenderness/normal range of motion Neuro exam: Left facial paralysis, awake alert oriented 3/cranial nerves II through XII appear to be intact/sensation intact/moves all extremities/no abnormal movements Psychiatric evaluation: No depressed mood/normal affect Skin: No rash on exposed skin area/no erythema Extremity: Normal pulse/no pitting edema/no clubbing or cyanosis Endocrine/lymphatic: No obvious lymphadenopathy /no lymphedema Discharge Data Allergies Allergy/AdvReac Type Severity Reaction Status Date / Time lisinopril Allergy Intermediate Mouth Verified 03/06/19 22:44 blistering Consultations 03/06/19 22:04 ED Decision to Admit Stat 03/07/19 01:21 Consult Case Management - Discharge Planning Routine Consult Case Management - Discharge Planning Routine 03/08/19 09:25 Consult Neurology Routine Ordered Studies 03/06/19 21:17 CT head/brain wo con Stat 03/07/19 00:24 MR angio head wo con Urgent MR angio neck wo/w con Urgent MR brain wo/w con Urgent Hospital Course (1) Hypertension: Allergic reaction to lisinopril with ulcers in the mouth, could be actually helps Can increase amlodipine to 10 mg p.o. daily if needed (2) GERD (gastroesophageal reflux disease): Can restart omeprazole 20 mg p.o. daily upon discharge (3) Allergic rhinitis: Hold loratadine (4) Herman's palsy: Patient was admitted to telemetry/PCU CVA ruled out by negative MRI brain, MRA head and neck Ulcers inside the mouth soft palate 2 x 2 centimeter, raised the question of herpes induced Herman's palsy Started him on valacyclovir 1000 mg 3 times daily for 7 days Started him on prednisone 80 mg p.o. 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 Primary care physician can follow-up on results Started him on eye care, lubricant ointment, artificial tears, close eye at night Consider ordering CT scan with contrast for facial bones tomorrow or MRI in her ear Suspected Venkatesh pino syndrome due to some pain he complained from behind his left ear Consulted neurologist and put him on airborne isolation Neurologist exam was consistent with typical Herman's palsy not Jena Pino syndrome, patient ear pain has dissipated, hence airborne isolation was discontinued and patient was discharged home on prednisone/valacyclovir Total Time Total Time Spent Total Time Spent (In Minutes): 35 minutes total time spent is greater than 50% in coordination of care (as documented) at patient's floor/unit and/or counseling patient/family discussion of care with nursing staff Discharge Plan Discharge Items Patient Disposition: Home - Self-Care Reason For Visit: L 7TH CN PALSY Discharge Diagnosis: Left-sided Herman's palsy Oral ulcer, possible herpes oralis Essential hypertension GERD Allergic rhinitis Discharge Goals: Decrease discomfort and Improve disease control Activity: Resume your previous activity Lifting: Gradually increase as tolerated Bathing: No limitations Sexual Activity: After one week Exercise/Sports: Gradually increase as tolerated Driving/Machine Use: Resume 3 days after discharge Weightbearing: Full weightbearing Non-emergency contact: Primary Care Provider and Neurologist Call non-emergency contact if: you have any medication questions and your symptoms worsen Follow-up/Referrals: Bob Christie [Primary Care Provider] - Diet: Regular Addtl Provider Instructions: Be very delicate attention to your eye care As instructed use the eye ointment 2-3 times a day but especially at bedtime Use eyedrops lubricant every 4 hours while awake Cover the eye with a soft patch at bedtime after putting ointment. Prescriptions: New valacyclovir 500 mg Tablet 1,000 mg PO TID 7 Days Qty: 42 RF: 0 Lubricant Eye (cmc-glycerin) 0.5-0.9 % drops 1 drops OP Q6H Qty: 30 RF: 0 prednisone 20 mg Tablet 80 mg PO DAILY 7 Days Qty: 28 RF: 0 sodium chloride 5 % ointment 1 appln OP BID Qty: 7 RF: 0 Continued amlodipine 5 mg tablet 10 mg PO DAILY RF: 0 omeprazole 20 mg capsule,delayed release(DR/EC) 20 mg PO DAILY RF: 0 multivitamin with minerals [Men's One Daily] Tablet 1 tab PO DAILY RF: 0 Discontinued loratadine 10 mg tablet 10 mg PO DAILY RF: 0 Stand-Alone Forms: [facility] Discharge Orders: Discharge Order (Routine); Ordered 03/08/19 Ordered By: Mercy William Admission Data Admit Date/Time: 03/06/19 23:55 Attending Provider: Mercy Mccracken Admit Provider: Gregorio Robbins Primary Care Provider: Bob Christie Other Providers: Gregorio Robbins ; Andrés Moses III Service: Telemetry
[2019-03-11 20:49] LABS: HSV Type 1 DNA Not Detected (Not Detected); HSV Type 1&2 DNA Source Whole Blood; HSV Type 2 DNA Not Detected (Not Detected)
== END 2019-03-08 16:56 | disposition home or self-care (01) ==
LOC: 2S 21:15 → ED 21:15 → SUATTDRO 23:55 → 2S 03-07 00:48
DX: J30.9 Allergic rhinitis, unspecified; G51.0 Bell's palsy; R47.81 Slurred speech; Z79.899 Other long term (current) drug therapy; H49.01 Third [oculomotor] nerve palsy, right eye; I10 Essential (primary) hypertension; K12.1 Other forms of stomatitis; K21.9 Gastro-esophageal reflux disease without esophagitis; Z88.8 Allergy status to other drugs, medicaments and biological substances